=== PATIENT | male | born 1930 | race African-American/Black ===

== ENCOUNTER 2016-07-09 12:41 | Inpatient (IN) | payer MEDICARE, OTHER ==
[~2016-07-09] VITALS: Ht 185.4 cm; Wt 92.6 kg
[2016-07-09] MEDS ORDERED: SOD CHLORIDE 0.9% 1,000 ML IV STA (12:50)
[2016-07-09 13:37] LABS: ABNORMAL IP MESSAGE 1; HEMATOCRIT 16.9 % (42.0-52.0); MEAN CORPUSCULAR HEMOGLOBIN 31.7 pg (29.0-33.0); MEAN CORPUSCULAR HGB CONC 31.4 g/dl (32.0-37.0); MEAN CORPUSCULAR VOLUME 101.2 fl (82.0-101.0); MEAN PLATELET VOLUME 12.5 fl (7.4-10.4); PLATELET COUNT 199 10^3/UL (140-415); RED BLOOD COUNT 1.67 10^6/ul (4.70-6.10); WHITE BLOOD COUNT 10.8 10^3/ul (4.8-10.8)
[2016-07-09 13:40] LABS: ALBUMIN 2.7 g/dl (3.3-4.9); INR 1.61; PROTIME 19.3 Sec (12.2-14.2); PT RATIO 1.5
[2016-07-09 13:40] LABS: AADO2 Arterial 48.4 mmHg (7.0-24.0); Allen Test ACCEPTAB; Arterial Base Excess 0.4 mmol/L (-3.0-3); Arterial COHb 0.8 % (0.0-3.0); Arterial Fraction of Oxyhgb 95.9 % (93.0-99.0); Arterial HCO3 24.5 mmol/L (22.0-26.0); Arterial MetHb 0.6 % (0.0-1.5); Arterial Total Hemglobin 5.7 g/dl (12.0-18.0); MODE NASAL CANNULA
[2016-07-09 13:41] LABS: PARTIAL THROMBOPLASTIN TIME 42.8 Sec (25.0-35.0)
[2016-07-09 13:43] LABS: ALBUMIN/GLOBULIN RATIO 0.9; BILIRUBIN,INDIRECT 0.2 mg/dl (0-1.1); BILIRUBIN,TOTAL 0.2 mg/dl (0.2-1.3); CREATININE 1.77 mg/dl (0.61-1.24); TOTAL PROTEIN 5.7 g/dl (6.1-8.1)
[2016-07-09 13:44] LABS: CALCIUM 8.4 mg/dl (8.4-10.2); MAGNESIUM 2.1 mg/dl (1.7-2.5); PHOSPHORUS 4.1 mg/dl (2.5-4.9)
[2016-07-09 13:55] LABS: TROPONIN-I 0.039 ng/ml (0.00-0.12)
--- NOTE | 2016-07-09 13:55 | RADRPT ---
PROCEDURE: XR Chest. CLINICAL INDICATION: Hyperglycemia. TECHNIQUE: PA and Lateral views of the chest were obtained. COMPARISON: None. FINDINGS: The soft tissues are normal. There are osteophytes in the thoracic spine. The heart is enlarged. The cardiomediastinal silhouette and hilar structures are normal. The pulmonary vasculature is lyn l. There are vascular calcifications in the aortic arch. No acute infiltrate is identified. 2 mm a nd adjacent 4 mm calcified granulomas are identified in the left upper lobe laila The costophrenic a ngles are normal. IMPRESSION: 1. Atherosclerosis aortic arch. 2. Cardiomegaly. 3. Spondylosis of the thoracic spine. 4. There are 2 calcified nodules in the apex of the left upper lobe which are likely the result of granulomas. RPTAT:AAJJ Physician Dipak Date Time Electronically viewed and signed by Cristopher Pete Physician on 07/09/2016 13:55 APOORVA/
[2016-07-09 13:56] LABS: ADD SCAN DIFF YES; HEMOGLOBIN 5.3 g/dl (14.0-18.0)
[2016-07-09 14:39] LABS: LYMPHOCYTES # 0.8 10^3/ul (0.8-2.9); MONOCYTE # 0.2 10^3/ul (0.3-0.9); NEUTROPHIL # 9.8 10^3/ul (1.6-7.5); PLATELET ESTIMATE PLT APPEAR ADEQUATE
[2016-07-09] MEDS ORDERED: APIX5TAB PO (14:46)
[2016-07-09] MEDS ORDERED: METH250T PO (14:51)
[2016-07-09] MEDS ORDERED: FOLI-49 PO (14:51)
[2016-07-09] MEDS ORDERED: ASPI81TA3 PO (14:51)
[2016-07-09] MEDS ORDERED: MINO2.5T16 PO (14:51)
[2016-07-09] MEDS ORDERED: LEVO100T82 PO (14:51)
[2016-07-09] MEDS ORDERED: TAMS0.4C2 PO (14:51)
[2016-07-09] MEDS ORDERED: MEMA10TA16 PO (14:51)
[2016-07-09] MEDS ORDERED: DOXA8TAB65 PO (14:51)
[2016-07-09] MEDS ORDERED: BENA20TA48 PO (14:51)
[2016-07-09] MEDS ORDERED: DONE10TA7 PO (14:51)
[2016-07-09] MEDS ORDERED: ATOR20TA38 PO (14:51)
[2016-07-09] MEDS ORDERED: AMLO-147 PO (14:51)
[2016-07-09] MEDS ORDERED: ONDANSETRON 4 MG INJ IV PRN (15:30)
[2016-07-09] MEDS ORDERED: SOD CHLORIDE 0.9% 1,000 ML IV SCH (16:30)
[2016-07-09 17:13] LABS: IRON 14 ug/dl (35-150); TOTAL IRON BINDING CAPACITY 192 ug/dl (241-421)
--- NOTE | 2016-07-09 17:13 | RADRPT ---
PROCEDURE: US Lower extremity Venous. CLINICAL INDICATION: Bilateral lower extremity edema TECHNIQUE: Multiple sonographic images of the bilateral lower extremity deep venous system was obt ained utilizing grayscale, color-flow, compressive sonography and doppler imaging with augmentation. The images were reviewed on a PACS workstation. COMPARISON: None. FINDINGS: There is normal compressibility and flow within the bilateral common femoral, femoral , posterior ti bial and popliteal veins. RPTAT: AA IMPRESSION: No sonographic evidence for deep venous thrombosis. .Leo Nam MD, MD Date Time Electronically viewed and signed by .Leo Nam MD, on 07/09/2016 17:13 .S/
--- NOTE | 2016-07-09 17:15 | RADRPT ---
PROCEDURE: Retroperitoneal US. CLINICAL INDICATION: Renal insufficiency TECHNIQUE: Multiple sonographic images of the kidneys and retroperitoneum were obtained. The imag es were reviewed on a PACS workstation. COMPARISON: No prior studies are available for comparison. FINDINGS: The kidneys are normal in size, contour, cortical thickness and cortical echogenicity. The right kidney measures 10.6 cm. The left kidney measures 10.3 cm. There is a 2.6 cm simple cyst in the upper pole of the right kidney. No kidney stones are visualized. There is no evidence for hydronephrosis. The urinary bladder is moderately distended. The prostate is enlarged measuring 5.8 x 4.4 x 5.8 cm. RPTAT: AA IMPRESSION: No evidence of hydronephrosis. Simple cyst in the upper pole of the right kidney. Enlarged prostate. Moderately distended urinary bladder. .Leo Nam MD, Date Time Electronically viewed and signed by .Leo Nam MD, MD on 07/09/2016 17:14 .S/
--- NOTE | 2016-07-09 18:29 | ERA ---
ER Documentation Chief Complaint Date/Time DATE: 07/09/16 TIME: 18:21 Chief Complaint BIB RA FOR EVAL OF HIGH GLUCOSE. HPI This is an 85-year-old male with a known history of DNR that was brought into the emergency department from home by EMS due to concerns of hyperglycemia. The patient has a known history of insulin-dependent diabetes mellitus. The patient had been recently discharged on June 20 from [facility] with indications to no longer take his insulin. Therefore his son indicates that he has been monitoring his blood glucose on a regular basis and his home health care nurse indicates that his blood glucose was 450 just prior to arrival. The patient had been admitted to [facility] for right leg pain and had been diagnosed with a DVT. 5 years prior to arrival he had a right total knee replacement. He has had no fevers or shaking or chills. He has had generalized weakness and increased tiredness but denies any hemoptysis hematemesis or melanotic stools. the patient did require blood transfusion when in the hospital at [facility] but his son indicates he was unaware of the etiology of the patient's anemia. The patient currently is on Eliquis 10 mg which he takes twice daily. He denies any polyuria or polydipsia. He has no chest pain or pressure that radiates to the neck arm back or jaw ROS All systems reviewed and are negative except as per history of present illness. Medications Home Meds Reported Medications Methyldopa* (Aldomet*) 250 Mg Tablet, 500 MG PO BID, #60 TAB 07/09/16 Tamsulosin Hcl* (Tamsulosin Hcl*) 0.4 Mg Cap.er.24h, 0.4 MG PO DAILY, CAP 07/09/16 Memantine* (Namenda*) 10 Mg Tablet, 10 MG PO DAILY, #30 TAB 07/09/16 Folic Acid* (Folic Acid*) 1 Mg Tablet, 1 MG PO DAILY, TAB 07/09/16 Doxazosin Mesylate* (Doxazosin Mesylate*) 8 Mg Tablet, 8 MG PO HS, TAB 07/09/16 Donepezil* (Donepezil*) 10 Mg Tablet, 10 MG PO DAILY, #30 TAB 07/09/16 Benazepril Hcl* (Benazepril Hcl*) 20 Mg Tablet, 20 MG PO DAILY, #30 TAB 07/09/16 Atorvastatin Calcium* (Atorvastatin Calcium*) 20 Mg Tablet, 20 MG PO QHS, #30 TAB 07/09/16 Minoxidil* (Lonitin*) 2.5 Mg Tab, 5 MG PO BID, TAB 07/09/16 Levothyroxine Sodium* (Levoxyl*) 100 Mcg Tablet, 100 MCG PO BEFORE BREAKFAST, # 30 TAB 07/09/16 Amlodipine Besylate* (Amlodipine Besylate*) 10 Mg Tablet, 10 MG PO DAILY, #30 TAB 07/09/16 Aspirin* (Aspirin* Chew) 81 Mg Tab.chew, 81 MG PO DAILY, TAB.CHEW 07/09/16 Apixaban* (Eliquis*) 5 Mg Tablet, 10 MG PO, TAB 07/09/16 PMhx/Soc Hx Miscellaneous Medical Probl: Yes (DM) Hx Alcohol Use: No Hx Substance Use: No Hx Tobacco Use: No Smoking Status: Never smoker Physical Exam Vitals Vital Signs Date Time Temp Pulse Resp B/P Pulse Ox O2 Delivery O2 Flow Rate FiO2 07/09/16 16:10 98.6 80 18 127/80 100 Room Air 07/09/16 13:01 98.5 96 20 185/163 93 Physical Exam Constitutional:Well-developed. Well-nourished. HEENT:Normocephalic. Atraumatic.Pupils were equal round reactive to light. Moist mucous membranes.No tonsillar exudates. Conjunctival pallor Neck: No nuchal rigidity. No lymphadenopathy. No posterior cervical spine tenderness or step-offs. Respiratory: Not using accessory muscles of respiration.Lungs were clear to auscultation bilaterally. No rhonchi. No rales. No wheezing. Cardiovascular: Regular rate regular rhythm.No murmurs. No rubs were appreciated.S1, S2 normal. Distal pulses are palpable 2+ bilaterally. GI: Abdomen was soft. Nontender. Non Distended. No pulsatile abdominal masses or bruits. No rebound. No guarding. Bowel sounds were present and normal. Muscle skeletal: Full range of motion of both the upper and lower extremities bilaterally.Normal muscle tone.No assymetrical calf tenderness or swelling. Skin: No petechia, no purpura. No lesions on the palms or the soles of the feet. No maculopapular rash. Patient has pressure boots present on the bilateral lower extremities NEURO: Patient was alert, awake, orientated x3.No facial droop. Gait not observed as patient is currently bedbound and speech had regular rate and rhythm. No focal neurological deficits. Result Diagram: 07/09/16 1305 07/09/16 1305 Results 24 hrs Laboratory Tests Test 07/09/16 12:50 07/09/16 12:57 07/09/16 13:05 07/09/16 13:20 Blood Gas Specimen Source Blood arterial Arterial Blood Date Drawn 07/09/2016 1:30:23 PM Arterial Blood pH (Temp corrected) 7.443 Arterial Blood pCO2 (Temp correct) 36.7mmhg Arterial Blood pO2 (Temp corrected) 107.9mmHG Arterial Blood HCO3 24.5mmol/L Arterial Blood Base Excess 0.4mmol/L Arterial Blood Oxygen Saturation 97.3mmHG Pedro Test ACCEPTAB Arterial Blood Gas Puncture Site Right Radial Arterial Blood Carboxyhemoglobin 0.8% Arterial Blood Methemoglobin 0.6% Blood Gas A-a O2 Differential 48.4mmHg Oxyhemoglobin Percent 95.9% Total Hemoglobin 5.7g/dl Blood Gas Temperature 37.0C Blood Gas Modality NASAL CANNULA FiO2 28.0% Blood Gas Critical Value Read Back DR. ROBINS Blood Gas Notified Whom Delfino Blood Gas Notified Time 07/09/2016 1:40:11 PM Bedside Glucose 441mg/dL White Blood Count 10.810^3/ul Red Blood Count 1.6710^6/ul Hemoglobin 5.3g/dl Hematocrit 16.9% Mean Corpuscular Volume 101.2fl Mean Corpuscular Hemoglobin 31.7pg Mean Corpuscular Hemoglobin Concent 31.4g/dl Red Cell Distribution Width 13.0% Platelet Count 72098^3/UL Mean Platelet Volume 12.5fl Neutrophils % 91.0% Lymphocytes % 7.0% Monocytes % 2.0% Eosinophils % % Basophils % % Nucleated Red Blood Cells % 0.0/100WBC Neutrophils # 9.810^3/ul Lymphocytes # 0.810^3/ul Monocytes # 0.210^3/ul Eosinophils # 10^3/ul Basophils # 10^3/ul Nucleated Red Blood Cells # 0.010^3/ul Platelet Estimate PLT APPEAR ADEQUATE Prothrombin Time 19.3Sec Prothrombin Time Ratio 1.5 INR International Normalized Ratio 1.61 Activated Partial Thromboplast Time 42.8Sec Sodium Level 144mmol/L Potassium Level 4.0mmol/L Chloride Level 109mmol/L Carbon Dioxide Level 26mmol/L Anion Gap 13 Blood Urea Nitrogen 58mg/dl Creatinine 1.77mg/dl Glucose Level 425mg/dl Calcium Level 8.4mg/dl Phosphorus Level 4.1mg/dl Magnesium Level 2.1mg/dl Total Bilirubin 0.2mg/dl Direct Bilirubin 0.00mg/dl Indirect Bilirubin 0.2mg/dl Aspartate Amino Transf (AST/SGOT) 21IU/L Alanine Aminotransferase (ALT/SGPT) 47IU/L Alkaline Phosphatase 84IU/L Troponin I 0.039ng/ml Total Protein 5.7g/dl Albumin 2.7g/dl Globulin 3.00g/dl Albumin/Globulin Ratio 0.90 Amylase Level 60U/L Lipase 175U/L Lactic Acid Level 0.9mmol/L Iron Level 14ug/dl Total Iron Binding Capacity 192ug/dl Percent Iron Saturation 7% SAT Folate > 20.0ng/ml Test 07/09/16 17:40 Lactic Acid Level 1.5mmol/L Current Medications Medications (Trade) Dose Ordered Sig/Mike Route PRN Reason Start Time Stop Time Status Last Admin Dose Admin Sodium Chloride (NS) 1,000 ml @ 1,000 mls/hr Q1H STAT IV 07/09/16 12:50 07/09/16 13:49 DC 07/09/16 13:15 Ondansetron HCl (Zofran Inj) 4 mg ER BRIDGE PRN IV NAUSEA AND/OR VOMITING 07/09/16 15:30 07/10/16 15:29 Amlodipine Besylate (Norvasc) 10 mg DAILY PO 07/10/16 09:00 UNV Aspirin (Aspirin) 81 mg DAILY PO 07/10/16 09:00 UNV Atorvastatin Calcium (Lipitor) 20 mg QHS PO 07/09/16 21:00 UNV Benazepril HCl (Lotensin) 20 mg DAILY PO 07/10/16 09:00 UNV Donepezil HCl (Aricept) 10 mg DAILY PO 07/10/16 09:00 UNV Doxazosin Mesylate (Cardura) 8 mg HS PO 07/09/16 21:00 UNV Folic Acid (Folic Acid) 1 mg DAILY PO 07/10/16 09:00 UNV Levothyroxine Sodium (Synthroid) 100 mcg BEFORE BREAKFAST PO 07/10/16 07:00 UNV Memantine (Namenda) 10 mg DAILY PO 07/10/16 09:00 UNV Insulin Aspart (Novolog Insulin Pen) NOVOLOG *MILD* ALGORITHM WITH MEALS BEDTIME SC 07/09/16 18:00 UNV Insulin Glargine (Lantus) 10 unit DAILY@20 SC 07/09/16 20:00 UNV Miscellaneous Information (* Miscellaneous Pharmacy Order) HYPOGLYCEMIA PROTOCOL w... ONCE ONCE XX 07/09/16 16:30 07/09/16 16:31 UNV Miscellaneous Information (* Miscellaneous Pharmacy Order) Discontinue Glyburide, Glipizide,... ONCE ONCE XX 07/09/16 16:30 07/09/16 16:31 UNV Miscellaneous Information Discontinue all previ... ONCE ONCE XX 07/09/16 16:30 07/09/16 16:31 UNV Sodium Chloride (NS) 1,000 ml @ 100 mls/hr Q10H IV 07/09/16 16:30 07/10/16 02:29 UNV Procedures/MDM This patient presented to the emergency department with hyperglycemia without ketosis. The patient received subcutaneous insulin in the emergency department as well as a liter bolus of normal saline. Patient been placed in a director of cardiac cath lab continuous pulse oximetry and IV access been established by nursing staff. The patient was anemic and therefore was typed and crossed and given 2 units of packed red blood cells in the emergency department. 12 Lead EKG tracing ordered and reviewed by myself showed: Normal sinus rhythm of 96 bpm and no arrhythmia. GA interval normal. QRS duration normal. No ST segment elevation No ST segment depression. Q waves present in the anteroseptal leads V2 V3 The patient will be in serious condition to the hospitalist Dr. Avila with an anticipated stay of greater than 2 midnights Departure Diagnosis: Primary Impression: Hyperglycemia without ketosis Additional Impression: Anemia Qualified Code: D64.9 - Anemia, unspecified type Condition: REBECCA Saucedo July 09, 2016 18:29
[2016-07-09 19:32] VITALS: TEMP 98.8
[2016-07-09] MEDS ORDERED: GLUCOSE GEL 15 GRAM TUBE PO PRN ×2 (20:00)
[2016-07-09] MEDS ORDERED: GLUCAGON 1 MG INJ IM PRN (20:00)
[2016-07-09] MEDS ORDERED: DEXTROSE 50% 50 ML SYRINGE IV PRN ×2 (20:00)
[2016-07-09] MEDS ORDERED: GLUCOSE GEL 15 GRAM TUBE BUCCAL PRN (20:00)
[2016-07-09] MEDS: ATORVASTATIN 20 MG TAB PO SCH (20:57)
[2016-07-09] MEDS: DOXAZOSIN 4 MG TAB PO SCH (20:57)
[2016-07-09] MEDS: INSULIN ASPART [NOVOLOG] 3 ML PEN SC SCH ×2 (21:00→21:32)
[2016-07-09] MEDS: INSULIN GLARGINE [LANtus] 3 ML PEN SC SCH (21:09)
[2016-07-09] MEDS ORDERED: INSULIN ASPART [NOVOLOG] 3 ML PEN SC ONE (21:30)
[2016-07-09 21:57] LABS: TROPONIN-I 0.052 ng/ml (0.00-0.12)
[2016-07-09 22:05] LABS: CK-MB 2.18 ng/ml (0.0-2.4)
[2016-07-09 22:07] LABS: ADD UMIC YES; URINE BILIRUBIN (Dip) NEGATIVE (NEGATIVE); URINE BLOOD (Dip) 3+ (NEGATIVE); URINE COLOR LT. YELLOW (YELLOW); URINE KETONES (Dip) NEGATIVE (NEGATIVE); URINE LEUKOCYTE ESTERASE (Dip) NEGATIVE (NEGATIVE); URINE NITRITE (Dip) NEGATIVE (NEGATIVE); URINE TOTAL PROTEIN (Dip) NEGATIVE (NEGATIVE); URINE UROBILINOGEN (Dip) 0.2 E.U./dL (0.1-1.0)
[2016-07-09 22:32] LABS: BACTERIA,URINE FEW; URINE RBCS 25-50 /HPF (0)
[2016-07-09 22:35] VITALS: PULSE 85
[2016-07-09 23:13] VITALS: Ht 185.4 cm; Wt 92.6 kg
[2016-07-10] VITALS (13 sets, daily range): BP systolic 118–150; BP diastolic 57–75; PULSE 61–80; RESP 16–20
[2016-07-10] MEDS ORDERED: INSULIN ASPART [NOVOLOG] 3 ML PEN SC ONE ×2 (00:30→04:30)
[2016-07-10] MEDS ORDERED: PENDING SANTYL ORDER FOR WOUND CARE XX PRN (02:00)
[2016-07-10] MEDS: ACCUCHECK AT 2AM (Patients on SS coverage) XX SCH (02:18)
[2016-07-10 02:47] LABS: TROPONIN-I 0.053 ng/ml (0.00-0.12)
[2016-07-10 02:52] LABS: CK-MB 1.79 ng/ml (0.0-2.4)
[2016-07-10] MEDS: PANTOPRAZOLE (EC) 40 MG TAB PO SCH (06:52)
[2016-07-10] MEDS: LEVOTHYROXINE 100 MCG TAB PO SCH (06:52)
--- NOTE | 2016-07-10 06:56 | HP ---
DATE OF ADMISSION: 07/09/2016 PRESENTING COMPLAINT: High blood glucose. HISTORY OF PRESENTING COMPLAINT: Mr. García is an 85-year-old male who was brought in by his family carlos bueno his glucometer kept reading high when they checked his blood glucose. The patient was recent ly discharged from an outside hospital after being managed for a lower extremity deep venous thrombo sis and during that hospitalization, he was told to stop using his insulin and as such, he has not b een using his insulin since discharge and when the family noticed that he was somewhat lethargic, th harshil checked his sugar and was found to be high. They brought him to the ER to be evaluated. In the ER, his hemoglobin was also found to be very low at 5.3. He is being admitted for further managemen t and care. Report that there has been no fever, no shortness of breath. The patient did not repor t abdominal pain. Family has not noted black stools ____ active bleeding. They have not noted bernice turia either. PAST MEDICAL HISTORY: 1. Positive for diabetes type 2. 2. High blood pressure. 3. Recent lower extremity deep venous thrombosis. 4. Chronic dementia. 5. Dyslipidemia. 6. Benign prostatic hypertrophy. 7. Hypothyroidism. 8. Chronic anemia. The patient recently had a blood transfusion. PAST SURGICAL HISTORY: History of right total knee replacement. ALLERGIES: THE PATIENT HAS NO KNOWN DRUG ALLERGIES. SOCIAL HISTORY: Denies tobacco or illicit drug use. FAMILY HISTORY: Noncontributory. REVIEW OF SYSTEMS: A 12-point review of system was done. Pertinent findings are as noted in HPI. PHYSICAL EXAMINATION: VITAL SIGNS: Temperature 98.5, pulse 96, respirations 20, blood pressure 85/163, saturations 93% on room air. At time of my evaluation his ____ has improved temperature was 98.6, pulse 80, respirati ons 18, blood pressure 127/80, saturations 100% on room air. GENERAL: I found an elderly male who appears in no distress. HEENT: Head was normocephalic. Pupils were equal and reactive to light. There was positive conjun ctival pallor, but no scleral jaundice. NECK: Supple without adenopathy. CHEST: Clear to auscultation with reduced air entry bilaterally, no crackles or wheezes. CARDIOVASCULAR: Heart sounds S1 and 2 without murmurs. ABDOMEN: Soft, nontender, nondistended with normoactive bowel sounds. EXTREMITIES: There was no lower extremity edema. NEUROLOGIC: Exam could not be done because the patient supposedly has not been very active due to l ethargy and SGPT but he seems to be able to move all 4 extremities without deficits. LABORATORY VALUES: Coag profile, his INR was elevated at 1.6. The patient is on Eliquis therapy, h is hemoglobin was 5.3, hematocrit 16.9 with a low MCHC and an elevated MCV. He had a leukocytosis, but he had a predominant neutrophilia picture with neutrophilia of 91%. On his chemistry, though, h is BUN was 58 and his creatinine was 1.77. Serum blood sugar was 425 and his calcium level was 8.4. LFTs were all unremarkable with total protein and albumin levels were reduced at 5.7 and 2.7. Lip ase was normal and his first troponin was 0.039, which was also normal. IMAGING: Chest x-ray showed atherosclerosis, cardiomegaly, ____ and an EKG on my review showed nor mal sinus rhythm with a rate of 96 beats per minute without any obvious ST elevations with reciproca l depressions. ASSESSMENT: An 85-year-old male who was brought in by family because of elevated blood pressure and lethargy with the followin. Severe anemia, likely secondary to occult bleeding from anticoagulation therapy. 2. Hyperglycemia without diabetic ketoacidosis. 3. Accelerated hypertension. 4. Recent lower extremity deep venous thrombosis. 5. Acute renal failure, rule out chronic kidney disease. 6. Diabetes mellitus with suboptimal control. 7. Chronic dementia. 8. Dyslipidemia. 9. Benign prostatic hypertrophy. 10. Hypothyroidism. PLAN: Patient is to be admitted to the telemetry floor for initial stabilization with transfusion o f packed red cells. For his hyperglycemia, we will start him gently on low-dose insulin and use IV fluids ____ normal saline to help control his levels. I will be ____ and aggressively managed. ____ indication for the doctors to recommend the patient t o stop insulin therapy prior to his discharge from the previous facility. I will also complete an A CS rule out. Hold all anticoagulation for now and repeat lower extremity Dopplers to assess ____ of DVTs. The patient might benefit from an IVC filter. I will review with vascular surgery and hemato logy and see what their recommendations are. In the meantime, for his blood pressure, he will resum e his home medicines and titrate as necessary for better control of the blood pressure. Will also c ontinue all the medications for dementia and hypothyroidism. We will get lab testing to assess cont rol. Further interventions will depend on clinical course. The patient will require close monitori ng of blood transfusion and close blood pressure monitoring to ensure optimization of his overall st atus. I have reviewed the plan of care with the family. I have answered questions. For prophylaxi s, he will be on PPI therapy as well as SCDs. Dictated By: LILIANE RAO MD, BA/MARIA GUADALUPE Conf#: [id number] DID#: [id number]
[2016-07-10] MEDS: DONEPEZIL 10 MG TAB PO SCH (08:23)
[2016-07-10] MEDS: MEMANTINE 10 MG TAB PO SCH (08:23)
[2016-07-10] MEDS: FOLIC ACID 1 MG TAB PO SCH (08:23)
[2016-07-10] MEDS: ASPIRIN 81 MG TAB PO SCH (08:23)
[2016-07-10] MEDS: BENAZEPRIL 20 MG TAB PO SCH (08:24)
[2016-07-10] MEDS: AMLODIPINE 10 MG TAB PO SCH (08:24)
[2016-07-10] MEDS: INSULIN ASPART [NOVOLOG] 3 ML PEN SC SCH ×4 (08:26→20:05)
[2016-07-10 11:28] LABS: ADD SCAN DIFF NO
[2016-07-10 11:33] LABS: ABNORMAL IP MESSAGE 1; BASOPHILS % 0.1 % (0.0-2.0); EOSINOPHILS # 0.2 10^3/ul (0.0-0.5); EOSINOPHILS % 2.5 % (0.0-7.0); HEMATOCRIT 21.3 % (42.0-52.0); LYMPHOCYTES # 0.9 10^3/ul (0.8-2.9); LYMPHOCYTES % 10.9 % (15.0-51.0); MEAN CORPUSCULAR HEMOGLOBIN 31.5 pg (29.0-33.0); MEAN CORPUSCULAR HGB CONC 32.4 g/dl (32.0-37.0); MEAN CORPUSCULAR VOLUME 97.3 fl (82.0-101.0); MEAN PLATELET VOLUME 12.2 fl (7.4-10.4); MONOCYTE # 0.5 10^3/ul (0.3-0.9); MONOCYTES % 6.1 % (0.0-11.0); NEUTROPHIL # 6.5 10^3/ul (1.6-7.5); NEUTROPHILS % 79.8 % (39.0-77.0); PLATELET COUNT 169 10^3/UL (140-415); RED BLOOD COUNT 2.19 10^6/ul (4.70-6.10); RED CELL DISTRIBUTION WIDTH 14.3 % (11.5-14.5); WHITE BLOOD COUNT 8.1 10^3/ul (4.8-10.8)
[2016-07-10 11:41] LABS: HEMOGLOBIN 6.9 g/dl (14.0-18.0)
[2016-07-10 11:52] LABS: CALCIUM 7.9 mg/dl (8.4-10.2); CREATININE 1.56 mg/dl (0.61-1.24)
[2016-07-10 11:55] LABS: INR 1.43; PARTIAL THROMBOPLASTIN TIME 35.9 Sec (25.0-35.0); PROTIME 17.5 Sec (12.2-14.2); PT RATIO 1.4
[2016-07-10 12:21] LABS: THYROID STIMULATING HORMONE 10.3 MIU/L (0.465-4.680)
--- NOTE | 2016-07-10 14:22 | PN ---
Date/Time of Note Date/Time of Note DATE: 07/10/16 TIME: 14:19 Assessment/Plan VTE Prophylaxis VTE Prophylaxis Intervention: SCD's Lines/Catheters IV [facility]from [facility]ine [facility] Urinary Cath still in place: Yes Reason Cath still needed: urinary retention Assessment/Plan Chief Complaint/Hosp Course Assessment 1. Severe anemia questionable GI bleed 2. History of anticoagulation for deep vein thrombosis 3. History of dementia 4. Renal insufficiency likely prerenal plan 1. transfuse 2 units packed red blood cells 2. Hold anticoagulation 3. GI consultation for possible EGD 4. Aspiration precautions Problems: Subjective 24 Hr Interval Summary Free Text/Dictation Patient is comfortable this morning mildly confused but arousable no shortness of breath Exam/Review of Systems Vital Signs Vitals Vital Signs Date Time Temp Pulse Resp B/P Pulse Ox O2 Delivery O2 Flow Rate FiO2 07/10/16 13:07 73 07/10/16 11:55 98.8 16 120/57 97 07/10/16 08:00 Nasal Cannula 2.0 Intake and Output 07/09/16 07/09/16 07/10/16 14:59 22:59 06:59 Intake Total 200 ml 1220 ml Output Total 1400 ml Balance 200 ml -180 ml Exam GENERAL: VITAL SIGNS: per chart NECK: Supple. No JVD or lymphadenopathy. CARDIAC EXAM: S1, S2. No added sounds or murmurs. CHEST: clear bilaterally, No added sounds, rales or wheezes ABDOMEN: Soft, nontender. No guarding or rebound. EXTREMITIES: No cyanosis, clubbing or edema. NEUROLOGIC: Generalized weakness. No focal deficits. Elderly gentleman comfortable at rest no acute distress Results Result Diagram: 07/10/16 1107 07/10/16 1107 Results 24 hrs Laboratory Tests Test 07/09/16 17:40 07/09/16 20:52 07/09/16 21:00 07/09/16 23:35 Lactic Acid Level 1.5 1.2 Bedside Glucose 437 *H 368 H Urine Color LT. YELLOW Urine Clarity CLOUDY H Urine pH 5.5 Urine Specific [place] 1.010 Urine Ketones NEGATIVE Urine Nitrite NEGATIVE Urine Bilirubin NEGATIVE Urine Urobilinogen 0.2 E.U./dL Urine Leukocyte Esterase NEGATIVE Urine Microscopic RBC 25-50 Urine Microscopic WBC 0-2 Urine Amorphous Urates MODERATE Urine Bacteria FEW Urine Hemoglobin 3+ H Urine Glucose 0.5% H Urine Total Protein NEGATIVE Creatine Kinase 363 H Creatine Kinase Index 0.6 Creatinine Kinase MB (Mass) 2.18 Troponin I 0.052 Test 07/10/16 02:14 07/10/16 02:15 07/10/16 04:27 07/10/16 08:04 Bedside Glucose 347 H 288 H 196 Creatine Kinase 302 H Creatine Kinase Index 0.6 Creatinine Kinase MB (Mass) 1.79 Troponin I 0.053 Test 07/10/16 11:07 07/10/16 11:10 07/10/16 11:34 White Blood Count 8.1 # Red Blood Count 2.19 #L Hemoglobin 6.9 #*L Hematocrit 21.3 #L Mean Corpuscular Volume 97.3 Mean Corpuscular Hemoglobin 31.5 Mean Corpuscular Hemoglobin Concent 32.4 Red Cell Distribution Width 14.3 Platelet Count 169 Mean Platelet Volume 12.2 H Neutrophils % 79.8 H Lymphocytes % 10.9 L Monocytes % 6.1 Eosinophils % 2.5 Basophils % 0.1 Nucleated Red Blood Cells % 0.0 Neutrophils # 6.5 Lymphocytes # 0.9 Monocytes # 0.5 Eosinophils # 0.2 Basophils # 0.0 Nucleated Red Blood Cells # 0.0 Prothrombin Time 17.5 H Prothrombin Time Ratio 1.4 INR International Normalized Ratio 1.43 Activated Partial Thromboplast Time 35.9 H Sodium Level 142 Potassium Level 4.0 Chloride Level 115 H Carbon Dioxide Level 25 Anion Gap 6 L Blood Urea Nitrogen 51 H Creatinine 1.56 H Glucose Level 182 # Calcium Level 7.9 L Thyroid Stimulating Hormone (TSH) 10.300 H Hemoglobin A1c 6.3 H Bedside Glucose 201 Medications Medications Current Medications Amlodipine Besylate (Norvasc) 10 mg DAILY PO Last administered on 07/10/16 08: 24; Admin Dose 10 MG; Start 07/10/16 at 09:00 Aspirin (Aspirin) 81 mg DAILY PO Last administered on 07/10/16 08:23; Admin Dose 81 MG; Start 07/10/16 at 09:00 Atorvastatin Calcium (Lipitor) 20 mg QHS PO Last administered on 07/09/16 20:57 ; Admin Dose 20 MG; Start 07/09/16 at 21:00 Benazepril HCl (Lotensin) 20 mg DAILY PO Last administered on 07/10/16 08:24; Admin Dose 20 MG; Start 07/10/16 at 09:00 Donepezil HCl (Aricept) 10 mg DAILY PO Last administered on 07/10/16 08:23; Admin Dose 10 MG; Start 07/10/16 at 09:00 Doxazosin Mesylate (Cardura) 8 mg HS PO Last administered on 07/09/16 20:57; Admin Dose 8 MG; Start 07/09/16 at 21:00 Folic Acid (Folic Acid) 1 mg DAILY PO Last administered on 07/10/16 08:23; Admin Dose 1 MG; Start 07/10/16 at 09:00 Memantine (Namenda) 10 mg DAILY PO Last administered on 07/10/16 08:23; Admin Dose 10 MG; Start 07/10/16 at 09:00 Insulin Glargine (Lantus) 10 unit DAILY@20 SC Last administered on 07/09/16 21: 09; Admin Dose 10 UNIT; Start 07/09/16 at 20:00 Diagnostic Test (Pha) (Accu-Chek) 1 ea 02 XX Last administered on 07/10/16 02: 18; Admin Dose 1 EA; Start 07/10/16 at 02:00 Miscellaneous Information 1 ea NOTE XX ; Start 07/09/16 at 20:00 Glucose (Glutose) 15 gm Q15M PRN PO DECREASED GLUCOSE; Start 07/09/16 at 20:00 Glucose (Glutose) 22.5 gm Q15M PRN PO DECREASED GLUCOSE; Start 07/09/16 at 20:00 Dextrose (D50w Syringe) 25 ml Q15M PRN IV DECREASED GLUCOSE; Start 07/09/16 at 20:00 Dextrose (D50w Syringe) 50 ml Q15M PRN IV DECREASED GLUCOSE; Start 07/09/16 at 20:00 Glucagon (Glucagen) 1 mg Q15M PRN IM DECREASED GLUCOSE; Start 07/09/16 at 20:00 Glucose (Glutose) 15 gm Q15M PRN BUCCAL DECREASED GLUCOSE; Start 07/09/16 at 20: 00 Pantoprazole (Protonix Tab) 40 mg DAILY@06 PO Last administered on 07/10/16 06: 52; Admin Dose 40 MG; Start 07/10/16 at 06:00 Miscellaneous Information (Pending Santyl Order For Wound Care) This patient watson... PRN PRN XX WOUND CARE; Start 07/10/16 at 02:00 JAZMIN PATE MD, [facility] July 10, 2016 14:22
[2016-07-10] MEDS: INSULIN GLARGINE [LANtus] 3 ML PEN SC SCH (19:57)
[2016-07-10] MEDS: DOXAZOSIN 4 MG TAB PO SCH (20:04)
[2016-07-10] MEDS: ATORVASTATIN 20 MG TAB PO SCH (20:05)
[2016-07-11] VITALS (12 sets, daily range): BP systolic 123–160; BP diastolic 59–70; PULSE 71–82; RESP 18–19
[2016-07-11] MEDS: ACCUCHECK AT 2AM (Patients on SS coverage) XX SCH (02:00)
[2016-07-11] MEDS: PANTOPRAZOLE (EC) 40 MG TAB PO SCH (06:57)
[2016-07-11] MEDS: LEVOTHYROXINE 100 MCG TAB PO SCH (06:57)
[2016-07-11] MEDS: INSULIN ASPART [NOVOLOG] 3 ML PEN SC SCH ×4 (08:00→21:43)
[2016-07-11] MEDS: FOLIC ACID 1 MG TAB PO SCH (08:26)
[2016-07-11] MEDS: DONEPEZIL 10 MG TAB PO SCH (08:26)
[2016-07-11] MEDS: BENAZEPRIL 20 MG TAB PO SCH (08:27)
[2016-07-11] MEDS: MEMANTINE 10 MG TAB PO SCH (08:27)
[2016-07-11] MEDS: AMLODIPINE 10 MG TAB PO SCH (08:27)
[2016-07-11] MEDS: ASPIRIN 81 MG TAB PO SCH (08:31)
[2016-07-11 10:33] LABS: ADD SCAN DIFF NO
[2016-07-11 10:40] LABS: BASOPHILS % 0.1 % (0.0-2.0); EOSINOPHILS # 0.3 10^3/ul (0.0-0.5); EOSINOPHILS % 3.3 % (0.0-7.0); HEMATOCRIT 29.6 % (42.0-52.0); HEMOGLOBIN 9.6 g/dl (14.0-18.0); LYMPHOCYTES # 1.1 10^3/ul (0.8-2.9); LYMPHOCYTES % 11.8 % (15.0-51.0); MEAN CORPUSCULAR HEMOGLOBIN 30.9 pg (29.0-33.0); MEAN CORPUSCULAR HGB CONC 32.4 g/dl (32.0-37.0); MEAN CORPUSCULAR VOLUME 95.2 fl (82.0-101.0); MEAN PLATELET VOLUME 12.1 fl (7.4-10.4); MONOCYTE # 0.6 10^3/ul (0.3-0.9); NEUTROPHIL # 7.4 10^3/ul (1.6-7.5); NEUTROPHILS % 78.3 % (39.0-77.0); PLATELET COUNT 159 10^3/UL (140-415); RED BLOOD COUNT 3.11 10^6/ul (4.70-6.10); RED CELL DISTRIBUTION WIDTH 15.2 % (11.5-14.5); WHITE BLOOD COUNT 9.5 10^3/ul (4.8-10.8)
[2016-07-11 10:51] LABS: POTASSIUM 3.8 mmol/L (3.5-5.1)
[2016-07-11 10:53] LABS: CREATININE 1.32 mg/dl (0.61-1.24)
[2016-07-11 10:54] LABS: CALCIUM 7.7 mg/dl (8.4-10.2)
--- NOTE | 2016-07-11 13:03 | PN ---
Date/Time of Note Date/Time of Note DATE: 07/11/16 TIME: 13:01 Assessment/Plan VTE Prophylaxis VTE Prophylaxis Intervention: SCD's Lines/Catheters IV Catheter Type (from [facility]): Saline Lock Urinary Cath still in place: Yes Reason Cath still needed: urinary retention Assessment/Plan Chief Complaint/Hosp Course Assessment 1. Severe anemia questionable GI bleed 2. History of anticoagulation for deep vein thrombosis 3. History of dementia 4. Renal insufficiency likely prerenal plan 1. Monitor H&H, pending GI evaluation 2. Hold anticoagulation 3. Aspiration precautions 4. Physical therapy evaluation ventilation worker contact next of kin Patient states he lives with family unlikely that he is able to take care of himself adequately may require snf placement Problems: Subjective 24 Hr Interval Summary Free Text/Dictation Patient comfortable this morning no new events awake alert and oriented Exam/Review of Systems Vital Signs Vitals Vital Signs Date Time Temp Pulse Resp B/P Pulse Ox O2 Delivery O2 Flow Rate FiO2 07/11/16 12:42 76 07/11/16 11:42 97.8 18 158/70 97 07/10/16 21:00 Nasal Cannula 2.0 Intake and Output 07/10/16 07/10/16 07/11/16 15:00 23:00 07:00 Intake Total 1500 ml Output Total 500 ml 950 ml Balance 1000 ml -950 ml Exam GENERAL: Elderly gentleman comfortable at rest VITAL SIGNS: per chart NECK: Supple. No JVD or lymphadenopathy. CARDIAC EXAM: S1, S2. No added sounds or murmurs. CHEST: clear bilaterally, No added sounds, rales or wheezes ABDOMEN: Soft, nontender. No guarding or rebound. EXTREMITIES: No cyanosis, clubbing or edema. NEUROLOGIC: Generalized weakness. No focal deficits. Results Result Diagram: 07/11/16 1010 07/11/16 1010 Results 24 hrs Laboratory Tests Test 07/10/16 17:15 07/10/16 19:51 07/10/16 20:35 07/11/16 03:00 Bedside Glucose 205 196 180 Magnesium Level 2.0 Test 07/11/16 08:22 07/11/16 10:10 07/11/16 11:41 Bedside Glucose 118 191 White Blood Count 9.5 Red Blood Count 3.11 #L Hemoglobin 9.6 #L Hematocrit 29.6 #L Mean Corpuscular Volume 95.2 Mean Corpuscular Hemoglobin 30.9 Mean Corpuscular Hemoglobin Concent 32.4 Red Cell Distribution Width 15.2 H Platelet Count 159 Mean Platelet Volume 12.1 H Neutrophils % 78.3 H Lymphocytes % 11.8 L Monocytes % 6.0 Eosinophils % 3.3 Basophils % 0.1 Nucleated Red Blood Cells % 0.0 Neutrophils # 7.4 Lymphocytes # 1.1 Monocytes # 0.6 Eosinophils # 0.3 Basophils # 0.0 Nucleated Red Blood Cells # 0.0 Sodium Level 143 Potassium Level 3.8 Chloride Level 111 H Carbon Dioxide Level 24 Anion Gap 12 Blood Urea Nitrogen 42 H Creatinine 1.32 H Glucose Level 151 Calcium Level 7.7 L Medications Medications Current Medications Amlodipine Besylate (Norvasc) 10 mg DAILY PO Last administered on 07/11/16 08: 27; Admin Dose 10 MG; Start 07/10/16 at 09:00 Aspirin (Aspirin) 81 mg DAILY PO Last administered on 07/11/16 08:31; Admin Dose 81 MG; Start 07/10/16 at 09:00 Atorvastatin Calcium (Lipitor) 20 mg QHS PO Last administered on 07/10/16 20:05 ; Admin Dose 20 MG; Start 07/09/16 at 21:00 Benazepril HCl (Lotensin) 20 mg DAILY PO Last administered on 07/11/16 08:27; Admin Dose 20 MG; Start 07/10/16 at 09:00 Donepezil HCl (Aricept) 10 mg DAILY PO Last administered on 07/11/16 08:26; Admin Dose 10 MG; Start 07/10/16 at 09:00 Doxazosin Mesylate (Cardura) 8 mg HS PO Last administered on 07/10/16 20:04; Admin Dose 8 MG; Start 07/09/16 at 21:00 Folic Acid (Folic Acid) 1 mg DAILY PO Last administered on 07/11/16 08:26; Admin Dose 1 MG; Start 07/10/16 at 09:00 Memantine (Namenda) 10 mg DAILY PO Last administered on 07/11/16 08:27; Admin Dose 10 MG; Start 07/10/16 at 09:00 Insulin Glargine (Lantus) 10 unit DAILY@20 SC Last administered on 07/10/16 19: 57; Admin Dose 10 UNIT; Start 07/09/16 at 20:00 Diagnostic Test (Pha) (Accu-Chek) 1 ea 02 XX Last administered on 07/11/16 02: 00; Admin Dose 1 EA; Start 07/10/16 at 02:00 Miscellaneous Information 1 ea NOTE XX ; Start 07/09/16 at 20:00 Glucose (Glutose) 15 gm Q15M PRN PO DECREASED GLUCOSE; Start 07/09/16 at 20:00 Glucose (Glutose) 22.5 gm Q15M PRN PO DECREASED GLUCOSE; Start 07/09/16 at 20:00 Dextrose (D50w Syringe) 25 ml Q15M PRN IV DECREASED GLUCOSE; Start 07/09/16 at 20:00 Dextrose (D50w Syringe) 50 ml Q15M PRN IV DECREASED GLUCOSE; Start 07/09/16 at 20:00 Glucagon (Glucagen) 1 mg Q15M PRN IM DECREASED GLUCOSE; Start 07/09/16 at 20:00 Glucose (Glutose) 15 gm Q15M PRN BUCCAL DECREASED GLUCOSE; Start 07/09/16 at 20: 00 Pantoprazole (Protonix Tab) 40 mg DAILY@06 PO Last administered on 07/11/16 06: 57; Admin Dose 40 MG; Start 07/10/16 at 06:00 Miscellaneous Information (Pending Santyl Order For Wound Care) This patient watson... PRN PRN XX WOUND CARE; Start 07/10/16 at 02:00 J[facility] PATE [facility], [facility] July 11, 2016 13:03
[2016-07-11] MEDS: COLLAGENASE 30 GM TUBE TOP SCH (14:30)
[2016-07-11] MEDS: DOXAZOSIN 4 MG TAB PO SCH (21:30)
[2016-07-11] MEDS: ATORVASTATIN 20 MG TAB PO SCH (21:30)
[2016-07-11] MEDS: INSULIN GLARGINE [LANtus] 3 ML PEN SC SCH (21:41)
[2016-07-12] VITALS (11 sets, daily range): BP systolic 132–173; BP diastolic 63–89; PULSE 68–80; RESP 18–20
[2016-07-12] MEDS: ACCUCHECK AT 2AM (Patients on SS coverage) XX SCH (01:45)
[2016-07-12] MEDS: PANTOPRAZOLE (EC) 40 MG TAB PO SCH (06:00)
[2016-07-12 07:21] LABS: ADD SCAN DIFF NO
[2016-07-12] MEDS: LEVOTHYROXINE 100 MCG TAB PO SCH (07:34)
[2016-07-12 07:39] LABS: BASOPHILS % 0.2 % (0.0-2.0); EOSINOPHILS # 0.3 10^3/ul (0.0-0.5); EOSINOPHILS % 2.9 % (0.0-7.0); HEMATOCRIT 27.9 % (42.0-52.0); HEMOGLOBIN 9.2 g/dl (14.0-18.0); LYMPHOCYTES # 1.1 10^3/ul (0.8-2.9); LYMPHOCYTES % 12.1 % (15.0-51.0); MEAN CORPUSCULAR HEMOGLOBIN 30.6 pg (29.0-33.0); MEAN CORPUSCULAR VOLUME 92.7 fl (82.0-101.0); MEAN PLATELET VOLUME 12.7 fl (7.4-10.4); MONOCYTE # 0.6 10^3/ul (0.3-0.9); NEUTROPHIL # 7.2 10^3/ul (1.6-7.5); NEUTROPHILS % 78.4 % (39.0-77.0); PLATELET COUNT 163 10^3/UL (140-415); RED BLOOD COUNT 3.01 10^6/ul (4.70-6.10); RED CELL DISTRIBUTION WIDTH 14.6 % (11.5-14.5); WHITE BLOOD COUNT 9.2 10^3/ul (4.8-10.8)
[2016-07-12 07:56] LABS: POTASSIUM 4.4 mmol/L (3.5-5.1)
[2016-07-12 07:59] LABS: CALCIUM 7.4 mg/dl (8.4-10.2); MAGNESIUM 1.9 mg/dl (1.7-2.5); PHOSPHORUS 2.9 mg/dl (2.5-4.9)
[2016-07-12] MEDS: INSULIN ASPART [NOVOLOG] 3 ML PEN SC SCH ×4 (08:00→20:50)
[2016-07-12] MEDS: MEMANTINE 10 MG TAB PO SCH (08:38)
[2016-07-12] MEDS: FOLIC ACID 1 MG TAB PO SCH (08:38)
[2016-07-12] MEDS: DONEPEZIL 10 MG TAB PO SCH (08:38)
[2016-07-12] MEDS: ASPIRIN 81 MG TAB PO SCH (08:38)
[2016-07-12] MEDS: BENAZEPRIL 20 MG TAB PO SCH (08:39)
[2016-07-12] MEDS: COLLAGENASE 30 GM TUBE TOP SCH (08:39)
[2016-07-12] MEDS: AMLODIPINE 10 MG TAB PO SCH (08:39)
--- NOTE | 2016-07-12 11:55 | PN ---
DATE: 07/12/2016 SUBJECTIVE: The patient García remains stable this morning. No new events overnight, no respiratory distress. PHYSICAL EXAMINATION: VITAL SIGNS: Temperature 98, pulse 72, blood pressure 147/68, O2 saturation 96% on 2 L nasal cannul a. NECK: Supple. No JVD or lymphadenopathy. CARDIAC: S1, S2, no added sounds or murmurs. CHEST: Diminished air entry bilaterally. No rales or wheezes. ABDOMEN: Soft, nontender. No guarding or rebound. EXTREMITIES: No cyanosis, clubbing, edema. NEUROLOGIC: Grossly intact. No focal deficits. LABORATORY DATA: White count 9.2, hemoglobin 9.2, platelets of 164. BUN 32, creatinine 1. INR was 1.43. IMPRESSION: 1. Significant anemia on admission concerning for gastrointestinal bleed. Case was referred to Dr. Montes, hopefully will review today. 2. Mild dementia. 3. Deconditioning. 4. History of hypertension. 5. Hyperlipidemia. PLAN: 1. Continue to monitor H and H. 2. GI evaluation and possible endoscopy. 3. transit worker recommendations noted. construction operations manager will be working on placement for this patient who will likely require some assistance following medical clearance. Dictated By: JAZMIN DEAN/MARIA GUADALUPE Conf#: [id number] DID#: [id number]
--- NOTE | 2016-07-12 15:28 | CONS ---
Date/Time of Note Date/Time of Note DATE: 07/12/16 TIME: 15:15 Assessment/Plan Assessment/Plan Additional Assessment/Plan Assessment * Anemia * Acute vs chronic vs tumors * Upper vs lower gi bleed * Diabetes mellitus * Hx of DVT * Hx of Hypertension * Dementia * Plan * PPI * EGD/colonoscopy risks and benefit explained to relatives agreed with the planned procedure ( kamilla winkler son) * continue present management Consultation Date/Type/Reason Admit Date/Time July 09, 2016 at 15:30 Date of Consultation: July 12, 2016 Type of Consultation: Gastroenterology Reason for Consultation anemia Referring Provider: JAZMIN PATE MD, [facility] Hx of Present Illness 85 y.o male with past medical history of DVT taking Eliquist,hypertension, chronic dementia,dyslipidemia,BPH,hypothyroidism,and diabetes mellitus was brought to er because of high blood sugar Emergency room hemoglobin is 5 , family denies any episode of melena,hematemesis,hematochezia nor abdominal pain. He was subsequently admitted with 4 units of PRBC transfused. On examination,no episode of melena,hematochezia ,hematemesis nor abdominal pain .Present hemoglobin is 9.2 Past Medical History Medical History: deep vein thrombosis, diabetes, hypertension, hypothyroid Past Surgical History Past Surgical Hx: no surgical history Family History Significant Family History: no pertinent family hx Social History Alcohol Use: none Smoking Status: Former smoker Exam/Review of Systems Vital Signs Vitals Vital Signs Date Time Temp Pulse Resp B/P Pulse Ox O2 Delivery O2 Flow Rate FiO2 07/12/16 12:06 98.2 87 19 132/63 94 07/12/16 00:00 Nasal Cannula 1.0 Intake and Output 07/11/16 07/11/16 07/12/16 15:00 23:00 07:00 Intake Total 400 ml 350 ml Output Total 900 ml 1040 ml Balance -500 ml -690 ml Exam Constitutional: alert, oriented, well developed Psych: nl mood/affect, no complaints Head: atraumatic, normocephalic Eyes: PERRL, nl conjunctiva, nl sclera Neck: non-tender, supple Respiratory: clear to auscultation, normal air movement Cardiovascular: nl pulses, regular rate and rhythm Gastrointestinal: nl liver, spleen, non-tender, soft Musculoskeletal: nl extremities to inspection Extremities: normal pulses Neurological: MRP CONTROLLER II-XII intact, nl speech, nl strength Skin: nl turgor, No rash or lesions Lymph: nl lymph nodes Results Result Diagram: 07/12/16 0710 07/12/16 0710 Results 24 hrs Laboratory Tests Test 07/11/16 17:03 07/11/16 21:29 07/12/16 01:36 07/12/16 07:10 Bedside Glucose 185 202 154 White Blood Count 9.2 Red Blood Count 3.01 L Hemoglobin 9.2 L Hematocrit 27.9 L Mean Corpuscular Volume 92.7 Mean Corpuscular Hemoglobin 30.6 Mean Corpuscular Hemoglobin Concent 33.0 Red Cell Distribution Width 14.6 H Platelet Count 163 Mean Platelet Volume 12.7 H Neutrophils % 78.4 H Lymphocytes % 12.1 L Monocytes % 6.0 Eosinophils % 2.9 Basophils % 0.2 Nucleated Red Blood Cells % 0.0 Neutrophils # 7.2 Lymphocytes # 1.1 Monocytes # 0.6 Eosinophils # 0.3 Basophils # 0.0 Nucleated Red Blood Cells # 0.0 Sodium Level 139 Potassium Level 4.4 Chloride Level 108 Carbon Dioxide Level 23 Anion Gap 12 Blood Urea Nitrogen 32 H Creatinine 1.00 Glucose Level 109 # Calcium Level 7.4 L Phosphorus Level 2.9 Magnesium Level 1.9 Test 07/12/16 08:34 07/12/16 12:04 Bedside Glucose 123 193 Medications Medications Current Medications Amlodipine Besylate (Norvasc) 10 mg DAILY PO Last administered on 07/12/16 08: 39; Admin Dose 10 MG; Start 07/10/16 at 09:00 Aspirin (Aspirin) 81 mg DAILY PO Last administered on 07/12/16 08:38; Admin Dose 81 MG; Start 07/10/16 at 09:00 Atorvastatin Calcium (Lipitor) 20 mg QHS PO Last administered on 07/11/16 21:30 ; Admin Dose 20 MG; Start 07/09/16 at 21:00 Benazepril HCl (Lotensin) 20 mg DAILY PO Last administered on 07/12/16 08:39; Admin Dose 20 MG; Start 07/10/16 at 09:00 Donepezil HCl (Aricept) 10 mg DAILY PO Last administered on 07/12/16 08:38; Admin Dose 10 MG; Start 07/10/16 at 09:00 Doxazosin Mesylate (Cardura) 8 mg HS PO Last administered on 07/11/16 21:30; Admin Dose 8 MG; Start 07/09/16 at 21:00 Folic Acid (Folic Acid) 1 mg DAILY PO Last administered on 07/12/16 08:38; Admin Dose 1 MG; Start 07/10/16 at 09:00 Memantine (Namenda) 10 mg DAILY PO Last administered on 07/12/16 08:38; Admin Dose 10 MG; Start 07/10/16 at 09:00 Insulin Glargine (Lantus) 10 unit DAILY@20 SC Last administered on 07/11/16 21: 41; Admin Dose 10 UNIT; Start 07/09/16 at 20:00 Diagnostic Test (Pha) (Accu-Chek) 1 ea 02 XX Last administered on 07/12/16 01: 45; Admin Dose 1 EA; Start 07/10/16 at 02:00 Miscellaneous Information 1 ea NOTE XX ; Start 07/09/16 at 20:00 Glucose (Glutose) 15 gm Q15M PRN PO DECREASED GLUCOSE; Start 07/09/16 at 20:00 Glucose (Glutose) 22.5 gm Q15M PRN PO DECREASED GLUCOSE; Start 07/09/16 at 20:00 Dextrose (D50w Syringe) 25 ml Q15M PRN IV DECREASED GLUCOSE; Start 07/09/16 at 20:00 Dextrose (D50w Syringe) 50 ml Q15M PRN IV DECREASED GLUCOSE; Start 07/09/16 at 20:00 Glucagon (Glucagen) 1 mg Q15M PRN IM DECREASED GLUCOSE; Start 07/09/16 at 20:00 Glucose (Glutose) 15 gm Q15M PRN BUCCAL DECREASED GLUCOSE; Start 07/09/16 at 20: 00 Pantoprazole (Protonix Tab) 40 mg DAILY@06 PO Last administered on 07/12/16 06: 00; Admin Dose 40 MG; Start 07/10/16 at 06:00 Miscellaneous Information (Pending Santyl Order For Wound Care) This patient watson... PRN PRN XX WOUND CARE; Start 07/10/16 at 02:00 Collagenase (Santyl) 1 applic DAILY TOP Last administered on 07/12/16 08:39; Admin Dose 1 APPLIC; Start 07/11/16 at 14:30 MARY JO CASIANO MD July 12, 2016 15:25
[2016-07-12] MEDS ORDERED: BISACODYL (EC) 5 MG TAB PO ONE (16:00)
[2016-07-12] MEDS ORDERED: MAGNESIUM CITRATE 300 ML BTL PO ONE (17:30)
[2016-07-12] MEDS ORDERED: POLYETHYLENE GLYCOL 3350 119 GM POWDER PO ONE (18:30)
[2016-07-12] MEDS: DOXAZOSIN 4 MG TAB PO SCH (20:50)
[2016-07-12] MEDS: ATORVASTATIN 20 MG TAB PO SCH (20:51)
[2016-07-12] MEDS: INSULIN GLARGINE [LANtus] 3 ML PEN SC SCH (20:58)
[2016-07-13] VITALS (19 sets, daily range): BP systolic 123–176; BP diastolic 50–87; PULSE 65–77; RESP 14–20
[2016-07-13] MEDS: ACCUCHECK AT 2AM (Patients on SS coverage) XX SCH (02:00)
[2016-07-13] MEDS ORDERED: POLYETHYLENE GLYCOL 3350 119 GM POWDER PO ONE (06:00)
[2016-07-13] MEDS: LEVOTHYROXINE 100 MCG TAB PO SCH (06:35)
[2016-07-13] MEDS: PANTOPRAZOLE (EC) 40 MG TAB PO SCH (06:35)
[2016-07-13] MEDS ORDERED: BISACODYL (EC) 5 MG TAB PO ONE (08:00)
[2016-07-13] MEDS: INSULIN ASPART [NOVOLOG] 3 ML PEN SC SCH ×4 (08:00→20:09)
[2016-07-13] MEDS: BENAZEPRIL 20 MG TAB PO SCH (09:55)
[2016-07-13] MEDS: ASPIRIN 81 MG TAB PO SCH (09:55)
[2016-07-13] MEDS: DONEPEZIL 10 MG TAB PO SCH (09:55)
[2016-07-13] MEDS: AMLODIPINE 10 MG TAB PO SCH (09:55)
[2016-07-13] MEDS: FOLIC ACID 1 MG TAB PO SCH (09:56)
[2016-07-13] MEDS: COLLAGENASE 30 GM TUBE TOP SCH (09:57)
[2016-07-13] MEDS: MEMANTINE 10 MG TAB PO SCH (09:57)
[2016-07-13] MEDS ORDERED: PROPOFOL 40 ML ONE (16:19)
[2016-07-13] MEDS ORDERED: DIPHENHYDRAMINE 50 MG INJ IV PRN (16:30)
[2016-07-13] MEDS ORDERED: MEPERIDINE 25 MG INJ IV PRN (16:30)
[2016-07-13] MEDS ORDERED: ONDANSETRON 4 MG INJ IV PRN (16:30)
[2016-07-13] MEDS ORDERED: MIDAZOLAM 1 MG/ML 2 ML INJ IV PRN (16:30)
[2016-07-13] MEDS ORDERED: METOCLOPRAMIDE 10 MG INJ IV PRN (16:30)
[2016-07-13] MEDS ORDERED: FENTAnyl 50 MCG/ML VIAL IV PRN (16:30)
--- NOTE | 2016-07-13 16:53 | PN ---
DATE: 07/13/2016 MEDICINE FOLLOWUP NOTE García remains stable today. No new events. [facility] Currently he is pending endoscopy this evening. PHYSICAL EXAMINATION: VITAL SIGNS: Temperature 97, pulse is 73, blood pressure 156/72, O2 saturations 98% on 4 L nasal ca nnula. NECK: Supple. No JVD or lymphadenopathy. CARDIAC EXAM: S1, S2. No added sounds or murmurs. CHEST: Diminished air entry in both lung miller. ABDOMEN: Soft, nontender. No guarding or rebound. EXTREMITIES: No cyanosis, clubbing or edema. NEUROLOGIC: Generalized weakness. LABORATORY: White count 9.2, hemoglobin 9.2, platelets of 163. Chemistry: BUN 32, creatinine 1.0. INR was 1.46. IMPRESSION: Severe anemia, a hemoglobin of 5.3 on admission, in a patient who had been on anticoagu lation for lower extremity deep vein thrombosis. The patient is status post transfusion of packed r ed blood cells, with a stable hemoglobin, now pending endoscopy. Pamela is on hold. PLAN: 1. Endoscopy this evening. 2. Continue medications. 3. Continue antihypertensives. 4. Anticipate discharge tomorrow. The patient has a bed at [facility] and has agree d for transfer. Dictated By: JAZMIN DEAN/MARIA GUADALUPE Conf#: [id number] DID#: [id number]
[2016-07-13] MEDS ORDERED: LACTULOSE 30ML CUP PO PRN (17:00)
[2016-07-13] MEDS: ATORVASTATIN 20 MG TAB PO SCH (20:09)
[2016-07-13] MEDS: DOXAZOSIN 4 MG TAB PO SCH (20:09)
[2016-07-13] MEDS: INSULIN GLARGINE [LANtus] 3 ML PEN SC SCH (20:13)
[2016-07-14] VITALS (11 sets, daily range): BP systolic 135–156; BP diastolic 65–73; PULSE 68–171; RESP 18–19
[2016-07-14] MEDS: ACCUCHECK AT 2AM (Patients on SS coverage) XX SCH (02:00)
--- NOTE | 2016-07-14 05:25 | GILP ---
DATE OF PROCEDURE: 07/13/2016 PROCEDURE: Attempted colonoscopy. PREMEDICATION: Monitored anesthesia care by anesthesiologist. TECHNIQUE: After informed consent with the patient understanding the procedure, the patient was pl aced in the left lateral decubitus, the sedation was administered by anesthesiologist. Rectal exam showed large amounts of semisolid stool. We attempted to perform colonoscopy. Unfortunately, prepa ration was extremely poor, and despite attempts at lavaging, we were not able to visualize any signi ficant amounts of mucosa. The procedure was, therefore, terminated. IMPRESSION: Poor preparation precludes examination. PLAN: The patient will be observed and may be slowly prepared for repeat attempts at colonoscopy. Dictated By: MARY JO ARSHAD Conf#: [id number] DID#: [id number]
--- NOTE | 2016-07-14 05:28 | GILP ---
DATE OF PROCEDURE: NAME OF PROCEDURE: Esophagogastroduodenoscopy with biopsies. BRIEF HISTORY AND INDICATIONS: The patient is being evaluated for unexplained anemia. SURGEON: Mary Jo Montes MD. PREMEDICATION: Monitored anesthesia care by anesthesiologist. INSTRUMENT USED: Olympus panendoscope. TECHNIQUE: After informed consent, with the patient/relatives understanding the procedure, its indic ations, potential risks and complications, including but not limited to: allergic reaction, bleeding , perforation or infection, and after all pertinent questions were answered to the patients satisfac tion, the patient/relatives signed witnessed informed consent. Following this, premedication was administered slowly IV push under careful cardiovascular and respi ratory monitoring with pulse oximetry, automatic blood pressure and court recording monitor. Once the sedative effect was achieved the patient was place in the left lateral decubitus, the panen doscope was introduced and advanced under visual control. Careful examination of the upper gastrointestinal tract, both on insertion as well as withdrawal of the instrument disclosed the following findings: ESOPHAGUS: The distal esophagus shows erythema and edema of the mucosa. There appears to be scarring from previous intervention, possibly banding. A moderate size hiatal hernia is present. STOMACH: Upon entrance to the stomach air was insufflated, the gastric workman distended normally. The mucosa of the fundus, body and antrum of the stomach shows erythema and edema of the mucosa of a mo derate degree. Biopsies were obtained to rule out H. pylori infection. PYLORUS: The pylorus appears patent and within normal limits, with no evidence of gastric outlet obs truction. DUODENUM: The duodenal mucosa was carefully examined in the duodenal bulb as well as the second port ion of the duodenum and appears unremarkable with no evidence of duodenitis, ulcer or neoplasm. The instrument was then withdrawn, the patient tolerated the procedure well and was transfer out of the endoscopy suite awake, and in good condition to continue recovery under observation IMPRESSION: 1. Scarred esophagus. 2. Distal esophagitis. 3. Hiatal hernia. 4. Gastritis, rule out Helicobacter pylori infection. Biopsies obtained. PLAN: The patient will be treated with PPIs. Further recommendation will depend on his clinical co urse. Dictated By: MARY JO MONTES MS/MARIA GUADALUPE Conf#: [id number] DID#: [id number]
[2016-07-14] MEDS: PANTOPRAZOLE (EC) 40 MG TAB PO SCH (05:36)
[2016-07-14] MEDS: LEVOTHYROXINE 100 MCG TAB PO SCH (06:20)
[2016-07-14] MEDS: INSULIN ASPART [NOVOLOG] 3 ML PEN SC SCH ×2 (08:00→12:00)
--- NOTE | 2016-07-14 09:39 | PDOCDIS ---
Discharge Instructions DIAGNOSIS Discharge Diagnosis: GI bleed with anemia; BPH; chronic Edwards; diabetes mellitus type 2; htn CONDITION Patient Condition: Fair HOME CARE INSTRUCTIONS: Special Diet: Mechanical soft ACTIVITY: Activity Restrictions: Avoid heavy lifting Do not operate Machinery Do not operate Power Tool FOLLOW UP/APPOINTMENTS Appointments GI consult for colonoscopy as per direction of primary care physician SAMMY TONY MD July 14, 2016 09:39
[2016-07-14] MEDS ORDERED: PANT40TA4 PO (09:48)
[2016-07-14] MEDS ORDERED: SAN30GM TOP (09:48)
[2016-07-14] MEDS ORDERED: FINA5TAB4 PO (09:48)
[2016-07-14] MEDS ORDERED: LANT3I SC (09:48)
--- NOTE | 2016-07-14 09:53 | DS ---
Date/Time of Note Date/Time of Note DATE: 07/14/16 TIME: 09:48 Discharge Summary Admission/Discharge Info Admit Date/Time July 09, 2016 at 15:30 Discharge Date/Time 07/14/2016 Final Diagnosis GI bleed due to esophagitis and anticoagulation; dementia; diabetes mellitus type 2; BPH; hypertension; hyperlipidemia Patient Condition: Fair Consults Gastroenterology Procedures EGD; attempted colonoscopy; echocardiogram Hx of Present Illness Mr. García is an 85-year-old male who was brought in by his family because his glucometer kept reading high when they checked his blood glucose. The patient was recently discharged from an outside hospital after being managed for a lower extremity deep venous thrombosis and during that hospitalization, he was told to stop using his insulin and as such, he has not been using his insulin since discharge and when the family noticed that he was somewhat lethargic, they checked his sugar and was found to be high. They brought him to the ER to be evaluated. In the ER, his hemoglobin was also found to be very low at 5.3. He is being admitted for further management and care. Report that there has been no fever, no shortness of breath. The patient did not report abdominal pain. Family has not noted black stools ____ active bleeding. They have not noted hematuria either. Hospital Course 85 y.o male with past medical history of DVT taking Eliquist,hypertension, chronic dementia,dyslipidemia,BPH,hypothyroidism,and diabetes mellitus was brought to er because of high blood sugar Emergency room hemoglobin is 5 , family denies any episode of melena,hematemesis,hematochezia nor abdominal pain. He was subsequently admitted with 4 units of PRBC transfused. On examination,no episode of melena,hematochezia ,hematemesis nor abdominal pain .Present hemoglobin is 9.2 Patient had colonoscopy which was poor prep and therefore non-usable. Upper endoscopy demonstrated hiatal hernia with a scarred esophagus active esophagitis. He has stabilized and is on appropriate medication therapy. He had been on Eliquis for reported history of DVT. Our imaging studies here did not demonstrate any evidence of DVT and as such will not be continuing the Eliquis. He will be continued on PPI inhibitors for 2 months. He is now able be returned back to his [facility]. Please note with his underlying dementia is not competent for medical decision-making he has no known communicable diseases he is not hazard to himself or others his rehabilitation potential is fair. He is on DNR status Home Meds Active Scripts Collagenase* (Santyl*) 30 Gm Oint..gm., 1 APPLIC TOP DAILY for 14 Days Prov:SAMMY TONY MD 07/14/16 Insulin Glargine* (Lantus*) 100 Unit/Ml Soln, 10 UNIT SC DAILY@20 for 30 Days Prov:SAMMY TONY MD 07/14/16 Finasteride* (Finasteride*) 5 Mg Tablet, 5 MG PO DAILY for 30 Days, TAB 1 Refill Prov:SAMMY TONY MD 07/14/16 Pantoprazole* (Pantoprazole*) 40 Mg Tablet.dr, 40 MG PO DAILY@06 for 30 Days, 1 Refill Prov:SAMMY TONY MD 07/14/16 Reported Medications Methyldopa* (Aldomet*) 250 Mg Tablet, 500 MG PO BID, #60 TAB 07/09/16 Tamsulosin Hcl* (Tamsulosin Hcl*) 0.4 Mg Cap.er.24h, 0.4 MG PO DAILY, CAP 07/09/16 Memantine* (Namenda*) 10 Mg Tablet, 10 MG PO DAILY, #30 TAB 07/09/16 Folic Acid* (Folic Acid*) 1 Mg Tablet, 1 MG PO DAILY, TAB 07/09/16 Doxazosin Mesylate* (Doxazosin Mesylate*) 8 Mg Tablet, 8 MG PO HS, TAB 07/09/16 Donepezil* (Donepezil*) 10 Mg Tablet, 10 MG PO DAILY, #30 TAB 07/09/16 Benazepril Hcl* (Benazepril Hcl*) 20 Mg Tablet, 20 MG PO DAILY, #30 TAB 07/09/16 Atorvastatin Calcium* (Atorvastatin Calcium*) 20 Mg Tablet, 20 MG PO QHS, #30 TAB 07/09/16 Minoxidil* (Lonitin*) 2.5 Mg Tab, 5 MG PO BID, TAB 07/09/16 Levothyroxine Sodium* (Levoxyl*) 100 Mcg Tablet, 100 MCG PO BEFORE BREAKFAST, # 30 TAB 07/09/16 Amlodipine Besylate* (Amlodipine Besylate*) 10 Mg Tablet, 10 MG PO DAILY, #30 TAB 07/09/16 Aspirin* (Aspirin* Chew) 81 Mg Tab.chew, 81 MG PO DAILY, TAB.CHEW 07/09/16 Apixaban* (Eliquis*) 5 Mg Tablet, 10 MG PO, TAB 07/09/16 Pending Labs Laboratory Tests Test 07/13/16 12:19 07/13/16 16:19 07/13/16 17:19 07/13/16 18:25 Bedside Glucose 188mg/dL (70-220) 136mg/dL (70-220) 135mg/dL (70-220) 119mg/dL (70-220) Test 07/13/16 20:05 07/14/16 07:53 Bedside Glucose 123mg/dL (70-220) 77mg/dL (70-220) SAMMY TONY MD July 14, 2016 09:53
[2016-07-14] MEDS ORDERED: AMLODIPINE 5 MG TAB PO SCH (10:00)
[2016-07-14] MEDS ORDERED: AMLODIPINE 10 MG TAB PO SCH (10:00)
[2016-07-14] MEDS ORDERED: FINASTERIDE 5 MG TAB PO SCH (10:00)
[2016-07-14] MEDS ORDERED: BENAZEPRIL 40 MG TAB PO SCH (10:30)
[2016-07-14] MEDS: ASPIRIN 81 MG TAB PO SCH (12:20)
[2016-07-14] MEDS: COLLAGENASE 30 GM TUBE TOP SCH (12:20)
[2016-07-14] MEDS: FOLIC ACID 1 MG TAB PO SCH (12:21)
[2016-07-14] MEDS: DONEPEZIL 10 MG TAB PO SCH (12:21)
[2016-07-14] MEDS: MEMANTINE 10 MG TAB PO SCH (12:24)
== END 2016-07-14 17:04 | DRG 392 ==
LOC: E/R 12:41 → MS4 15:30
PROVIDERS: ADMIT Family Medicine; ATTEND Family Medicine
PROC: 30233N1 Transfusion of Nonautologous Red Blood Cells into Peripheral Vein, Percutaneous Approach (ICD-10-PCS; 2016-07-09)
PROC: 0DJD8ZZ Inspection of Lower Intestinal Tract, Via Natural or Artificial Opening Endoscopic (ICD-10-PCS; 2016-07-13)
PROC: 0DB68ZX Excision of Stomach, Via Natural or Artificial Opening Endoscopic, Diagnostic (ICD-10-PCS; principal; 2016-07-13 17:30)
DX: K22.8 Other specified diseases of esophagus (principal); N17.9 Acute kidney failure, unspecified; E11.65 Type 2 diabetes mellitus with hyperglycemia; D62 Acute posthemorrhagic anemia; F03.90 Unspecified dementia, unspecified severity, without behavioral disturbance, psychotic disturbance, mood disturbance, and anxiety; K92.2 Gastrointestinal hemorrhage, unspecified; T45.515A Adverse effect of anticoagulants, initial encounter; K20.9 Esophagitis, unspecified; N40.0 Benign prostatic hyperplasia without lower urinary tract symptoms; I10 Essential (primary) hypertension; E78.5 Hyperlipidemia, unspecified; E03.9 Hypothyroidism, unspecified; Y92.019 Unspecified place in single-family (private) house as the place of occurrence of the external cause; Z79.4 Long term (current) use of insulin; Z79.01 Long term (current) use of anticoagulants; Z86.718 Personal history of other venous thrombosis and embolism
CPT/HCPCS: 36415; 36430; 36600; 71010; 76775; 80048; 80053; 81001; 81003; 82150; 82270; 82550; 82553; 82746; 82803; 82962; 83036; 83540; 83605; 83690; 83735; 84100; 84443; 84484; 85025; 85610; 85730; 86850; 86900; 86901; 86920; 87040; 87081; 87086; 88305; 88312; 93005; 93970; 96372; 97162; J1815; J7030; P9016